=== PATIENT | male | born 1960 ===

== ENCOUNTER 2019-10-04 12:04 | Emergency (ER) | payer SELFPAY ==
--- NOTE | 2019-10-04 12:10 | ED_ITS ---
HPI - General Adult General: Chief complaint: General Medical Stated complaint: PSYCH EVAL Time Seen by Provider: 10/04/19 12:05 Source: patient and EMS Mode of arrival: EMS Limitations: no limitations History of Present Illness: HPI narrative: Mr. Avery is a nice 59-year-old male who is brought in by EMS after he was found walking along the road. He was stopped by the anodizer and the anodizer gave the patient option of coming the ER to be evaluated or [place] and then the patient will be dropped off. Mr. Avery inquired as to which trip would get him closer toward [place] and he was told that coming to the hospital with EMS would do this and so he elected to come with EMS. EMS reports no complaints by the patient. The patient appears to be in his right mind. Almost immediately upon my talking the patient he is requesting to leave. He appears in his right mind and shows no sign of impairment at this time. Associated symptoms: Deny chest pain, confusion, diaphoresis, dyspnea, headache(s), malaise, nausea, rash, palpitations, syncope or vomiting Review of Systems Const: Denies: fever(s), chills, body aches, fatigue, malaise or diaphoresis Eyes: Denies: change in vision, blurry vision, blind spots or photophobia ENMT: Denies: throat pain, odynophagia, hoarseness, swelling of lips/tongue, ear or mastoid pain, ear discharge, change in hearing or nasal discharge Card: Denies: chest pain, palpitations, irregular heart rhythm, edema, lightheadedness, syncope, pre-syncope, dyspnea on exertion or orthopnea Resp: Denies: dyspnea, productive cough, non-productive cough, wheezing, hemoptysis or chest congestion GI: Denies: abdominal pain, nausea, vomiting, hematemesis, coffee ground emesis, heartburn, diarrhea, constipation, GI cramping, hematochezia or melena : Denies: flank pain, dysuria, urinary frequency, urinary urgency or hematu santi Musc: Denies: neck pain, back pain, extremity pain, extremity swelling, joint pain, joint swelling, joint redness, joint warmth or joint stiffness Skin/Breast: Denies: rash, pruritus, erythema, skin tenderness or jaundice Neuro: Denies: headache(s), numbness in extremities, weakness in extremities, sensory changes, lack of coordination, difficulty walking, dizziness, vertigo, confusion or Slurred speech present Carlitos/Lymph: Denies: easy bruising, easy bleeding, petechiae, purpura or enlarged lymph nodes All/Imm: Denies: urticaria, throat swelling, tongue swelling, facial swelling or acute wheezing PFSH ED PFSH: Medical History (Updated 10/04/19 @ 12:20 by Dominique Delacruz) No pertinent past medical history Social History Smoking and tobacco status: never smoked Physical Exam Const: COMMON NORMALS: no acute distress, patient oriented x3, no limitations, healthy appearing and well nourished GENERAL APPEARANCE: cooperative, well kempt and well developed HENMT: COMMON NORMALS: normocephalic, atraumatic, external ears normal, EAC's normal and Normal external nose present HEAD & SCALP: normal to inspection, normocephalic and atraumatic FACE & SINUS: normal facial exam and face symmetric NOSE: Normal external nose present and Normal nares present EXTERNAL EAR: Yes external ears normal EXTERNAL AUDITORY CANAL: EAC's normal MOUTH: Normal oral and palatal mucosa present, lip normal and tongue normal Eye: COMMON NORMALS: Equal, round and reactive pupils present and conjunctivae normal GENERAL EYE: appearance normal, both eyes and all related structures ALIGNMENT: Yes alignment normal PERIORBITAL: periorbital findings normal EYELID: eyelids normal CONJUNCTIVA: Yes conjunctivae normal SCLERA: sclerae normal PUPIL: Yes Equal, round and reactive pupils present Neck/C-Spine: COMMON NORMALS: full ROM, no lymphadenopathy, supple, no meningeal signs and no JVD GENERAL: Yes normal visual inspection and Yes trachea midline Chest: COMMONS NORMALS: normal inspection of the chest and normal palpation of entire chest wall Resp: COMMON NORMALS: normal respiratory effort, No retractions and No use of accessory muscles EFFORT & INSPECTION: Yes able to speak in complete sentences and Yes symmetric chest movement AUSCULTATION: no crackles, no rales, no rhonchi and no wheezes Cardio: COMMON NORMALS: no JVD, regular rate, regular rhythm, S1 normal heart sound present and S2 normal heart sound present RATE: regular rate RHYTHM: regular rhythm HEART SOUNDS: S1 normal heart sound present, S2 normal heart sound present, no click, no gallops, no murmurs, no rubs and abnormal split S2 GI: COMMON NORMALS: Soft to palpation and No hepatosplenomegaly present PALPATION: Yes Soft to palpation, No Tenderness to palpation present (GI), No Guarding due to palpation present (GI), No Rigid due to palpation, Yes No hepatosplenomegaly present, No Hernia present, No Palpable mass present and No Pulsatile mass present : COMMON NORMALS: Yes no CVA tenderness BLADDER/KIDNEY EXAM: Yes no CVA tenderness Back/Pelvis: COMMON NORMALS: no CVA tenderness, thoracic and lumbar spine normal to inspection, no thoracic nor lumbar tenderness and thoraco-lumbar ROM normal Extremity: COMMON NORMALS: normal to inspection, full ROM, capillary refill normal, no joint enlargement, no clubbing, cyanosis or edema and no calf tenderness Neuro: COMMON NORMALS: patient oriented x3, CN's II-XII intact bilaterally, moves all extremities, no focal motor deficits and no sensory deficits noted MENINGEAL SIGNS: Yes no meningeal signs SPEECH: speech normal Psych: COMMON NORMALS: mental status grossly normal, Normal thought process present, cooperative, normal affect, speech normal and activity/motor behavior normal APPEARANCE: Yes well kempt SPEECH: Yes normal speech THOUGHT PROCESS: Normal thought process present Skin: COMMON NORMALS: no rashes or lesions noted, turgor normal, no jaundice, no petechiae and no mottling GENERAL SKIN EXAM: no rashes or lesions noted and turgor normal Course Vital Signs: Vital signs: Vital Signs Temperature 98.5 F 10/04/19 12:11 Pulse Rate 95 10/04/19 12:11 Respiratory Rate 14 10/04/19 12:11 Blood Pressure 134/84 10/04/19 12:11 Pulse Oximetry 97 10/04/19 12:11 MDM - General Adult MDM Narrative: Medical decision making narrative: The patient is alert to person, place, time and situation. He shows no sign of impairment. I believe he is probably homeless and is trying to get to another part of the country. Nonetheless he is in his right mind and he does not want any treatment here. I have tried to talk him into at least getting something to eat and drink here in cooling off before going back out into the heat but he declines. He states he has money and he wants to go to [place] to eat lunch and then he is going to be back off traveling to [place]. I have made him aware he is free to return here should he want to and he understands this. He agrees to return if he has any problems. Discharge Plan Discharge Patient Disposition: Home, Self-Care Clinical Impression: Normal exam Condition: Stable Discharge Orders: Discharge Order (Routine); Ordered 10/04/19 Ordered By: Dominique Delacruz Referrals: Dominique Delacruz [Emergency Provider] - 1-3 days (You are free to return here to the ER at any time for recheck and further evaluation and care if you desire.) Discharge Diet: Usual diet Discharge Activity: Resume usual activity Activity Restrictions/Additional Instructions: Please return to the ER immediately for any of the signs or symptoms listed on your discharge instruction sheets, worsening/changing of your symptoms, you are not getting better as quickly as expected, or for ANY other cause or concerns. You have declined any evaluation and care here. If you change your mind or develop any symptoms of illness you are more than welcome to return at any time. Coding Level of Care Code ED Sample Driller for Raig Fwd Exam Comprehensive
[2019-10-04 12:11] VITALS: BP 134/84; PULSE 95; RESP 14; TEMP 36.9; O2SAT 97; BMI 34.2
== END 2019-10-04 12:15 | disposition home or self-care (01) ==
LOC: ER 17:06
PROVIDERS: Emergency Provider Emergency Medicine
DX: Z71.1 Person with feared health complaint in whom no diagnosis is made (principal)
CPT/HCPCS: 12345; 99281